=== PATIENT | male | born 1970 | race Caucasian/White ===

== ENCOUNTER 2021-12-23 22:04 | Emergency (ER) | payer OTHER ==
[2021-12-23 23:41] LABS: HEMOGLOBIN 14.4 gm/dl (14.0-17.5); RED BLOOD COUNT 4.66 M/UL (4.20-5.50); WHITE BLOOD COUNT 19.4 K/UL (4.5-11.0)
[2021-12-24 00:06] LABS: BUN/CREATININE RATIO 21 (0-10)
== END 2021-12-24 01:20 | disposition home or self-care (01) ==
LOC: ER1 22:04
PROVIDERS: Student in an Organized Health Care Education/Training Program
DX: J02.0 Streptococcal pharyngitis (principal); F17.210 Nicotine dependence, cigarettes, uncomplicated
CPT/HCPCS: 80053; 85025; 96372; 99283; J0561; J1100; J1885